=== PATIENT | female | born 1965 | race Caucasian/White ===

== ENCOUNTER 2022-05-03 18:26 | Emergency (ER) | payer OTHER ==
[2022-05-03 18:43] VITALS: BP 154/83; PULSE 85; TEMP 98.1; BMI 32.5
[2022-05-03] MEDS ORDERED: ACETAMINOPHEN 500 MG TABLET (FP) PO ONE (20:02)
[2022-05-03] MEDS ORDERED: BACITRACIN 15 GM TUBE TOPICAL OINTMENT TP ONE (20:02)
[2022-05-03] MEDS ORDERED: BACITRACIN 15 GM TUBE TOPICAL OINTMENT ONE (20:09)
[2022-05-03] MEDS ORDERED: ACETAMINOPHEN 500 MG TABLET (FP) ONE (20:09)
[2022-05-03] MEDS ORDERED: BACITRACIN 0.9 GM PACKET TP ONE (20:15)
[2022-05-03] MEDS ORDERED: KETOROLAC TROMETHAMINE 30 MG/1 ML VIAL ONE ×2 (21:36→21:37)
== END 2022-05-03 23:09 | disposition home or self-care (01) ==
LOC: JER 18:26
DX: S82.891A Other fracture of right lower leg, initial encounter for closed fracture (principal); S80.212A Abrasion, left knee, initial encounter; W01.0XXA Fall on same level from slipping, tripping and stumbling without subsequent striking against object, initial encounter
CPT/HCPCS: 73610-TC-RT-FY; 73630-TC-RT-FY; 99283-25